=== PATIENT | female | born 1930 | race African-American/Black ===

== ENCOUNTER 2017-10-12 16:05 | Emergency (ER) | payer MEDICARE, MEDICAID ==
[~2017-10-12] VITALS: Ht 165.1 cm; Wt 59.0 kg
[2017-10-12 18:31] LABS: BASOPHILS % 0.4 % (0.0-2.0); EOSINOPHILS % 0.1 % (0.0-5.0); HEMATOCRIT. 34.2 % (36.0-48.0); HEMOGLOBIN. 11.2 g/dL (12.0-16.0); LYMPHOCYTES % 18.4 % (20.0-50.0); MEAN CORPUSCULAR HEMOGLOBIN 29.9 pg (28.0-32.0); MEAN CORPUSCULAR VOLUME 91.4 fL (81.0-99.0); MEAN PLATELET VOLUME 12.3 fl (7.4-10.4); MONOCYTES % 9.9 % (2.0-8.0); NEUTROPHILS % 71.2 % (40.0-76.0); PLATELET 72 x1000/uL (130-400); RED BLOOD CELL COUNT 3.74 mill/uL (4.2-5.4); RED CELL DISTRIBUTION WIDTH 13.8 % (11.6-14.6)
[2017-10-12 18:34] LABS: PROTHROMBIN TIME 10.6 sec (9.4-11.6)
[2017-10-12 18:37] LABS: CHLORIDE 106 mEq/L (98-107)
[2017-10-12 18:44] LABS: TROPONIN I < 0.02 ng/mL (0.00-0.04)
[2017-10-12 21:05] VITALS: BP 131/61
[2017-10-12] MEDS ORDERED: ACETAMINOPHEN 325MG TABLET PO ONE (21:30)
== END 2017-10-12 21:07 | disposition home or self-care (01) ==
LOC: ER 16:25
DX: R00.2 Palpitations (principal)
CPT/HCPCS: 36415; 71045; 80053; 83880; 84484; 85025; 85610; 93005; 99285